=== PATIENT | male | born 1945 | race Two or more races ===

== ENCOUNTER → 2024-08-17 | Outpatient (CLI) | payer MEDICARE, SELFPAY ==
[2024-08-17 12:03] LABS: Basophils # (Auto) 0.1 Thou/mm3 (0.0-0.2); Basophils % (Auto) 1 % (0-2.5); Eosinophils # (Auto) 0.4 Thou/mm3 (0.0-0.5); Eosinophils % (Auto) 7 % (0-10); Hematocrit 36.8 % (41.0-53.0); Hemoglobin 11.6 g/dL (13.5-16.0); Immature Granulocytes % (Auto) 0 % (0-0); Immature Granulocytes Auto 0.01 Thou/mm3 (0.00-0.00); Lymphocytes # (Auto) 0.9 Thou/mm3 (1.0-4.8); Lymphocytes % (Auto) 17 % (10-50); Mean Corpuscular HGB Conc 31.5 g/dl (31.0-37.0); Mean Corpuscular Hemoglobin 29.7 pg (25.0-35.0); Mean Corpuscular Volume 94 fL (80-100); Monocytes # (Auto) 0.5 Thou/mm3 (0.0-0.8); Monocytes % (Auto) 8 % (0-12); Neutrophils # (Auto) 3.7 Thou/mm3 (1.8-7.7); Neutrophils % (Auto) 67 % (37-80); Nucleated Red Blood Cell % 0 /100 WBC (0); Platelet Count 219 Thou/mm3 (140-440); RDW Standard Deviation 45.5 fL (35.1-43.9); Red Blood Count 3.91 Miln/mm3 (4.50-5.90); White Blood Count 5.5 Thou/mm3 (3.8-10.6)
[2024-08-17 12:11] LABS: Glucose Estimated Average 154 mg/dL (80-131)
[2024-08-17 12:16] LABS: Alanine Aminotransferase 15 U/L (10-49); Albumin, Serum 4.1 gm/dL (3.4-4.8); Alkaline Phosphatase 76 U/L (46-116); Anion Gap 6 (7-16); Aspartate Amino Transferase 10 U/L (0-34); BUN/Creatinine Ratio 18 Ratio (12-20); Bilirubin,Direct 0.1 mg/dL (0.0-0.3); Bilirubin,Total 0.4 mg/dL (0.3-1.2); Blood Urea Nitrogen 28 mg/dL (9-23); Calcium 8.8 mg/dL (8.3-10.6); Carbon Dioxide 28.7 mMol/L (20.0-31.0); Cardiac Risk Estimate 4.5 RATIO (4.0-6.7); Chloride 106 mMol/L (98-107); Cholesterol 195 mg/dL (132-200); Creatinine (Component) 1.6 mg/dL (0.6-1.3); Glucose 139 mg/dL (74-106); HDL Cholesterol 43 mg/dL (40-60); LDL Cholesterol,Calculated 127 mg/dL (0-130); Osmolality,Calculated 288 (275-295); Potassium 4.4 mMol/L (3.4-5.1); Sodium 141 mMol/L (136-145); Total Protein 6.9 gm/dL (5.7-8.2); Triglycerides 123 mg/dL (30-150); eGFR 43 See Note
[2024-08-17 12:23] LABS: Creatinine MALB Rnd Ur 74 mg/dL (30-125); Microalbumin Creat Ratio 66 mg/gCrea (<30); Microalbumin, Random Urine 49 mg/L (0-300)
[2024-08-17 12:24] LABS: Iron 45 mcg/dL (65-175); Percent Iron Saturation 12 % (20-55); Total Iron Binding Capacity 351 mcg/dL (250-425); Unsaturated Iron Binding 306 (225-295)
== END | disposition home or self-care (01) ==
LOC: COPL 11:09
PROVIDERS: PCP Family Medicine; Referring Provider Family Medicine; Visit Provider Family Medicine
DX: I10 Essential (primary) hypertension (principal); E11.22 Type 2 diabetes mellitus with diabetic chronic kidney disease; D50.9 Iron deficiency anemia, unspecified
CPT/HCPCS: 36415; 80048; 80061; 80076; 82043; 82570; 83036; 83540; 83550; 85025

== ENCOUNTER 2025-05-28 07:15 | Day surgery (SDC) | payer OTHER, SELFPAY ==
--- NOTE | 2025-05-27 07:00 | EKG_ITS ---
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
[2025-05-27 08:41] VITALS: BMI 32.5
[2025-05-27 09:08] LABS: Collection Type, Urine Clean Catch; Squamous Epithelial Cell,Urine 0 /hpf (0-5)
[2025-05-27 10:26] LABS: Basophils # (Auto) 0.1 Thou/mm3 (0.0-0.2); Basophils % (Auto) 1 % (0-2.5); Eosinophils # (Auto) 0.4 Thou/mm3 (0.0-0.5); Eosinophils % (Auto) 7 % (0-10); Hematocrit 38.8 % (41.0-53.0); Hemoglobin 12.2 g/dL (13.5-16.0); Immature Granulocytes Auto 0.02 Thou/mm3 (0.00-0.00); Lymphocytes # (Auto) 1.1 Thou/mm3 (1.0-4.8); Lymphocytes % (Auto) 20 % (10-50); Mean Corpuscular HGB Conc 31.4 g/dl (31.0-37.0); Mean Corpuscular Hemoglobin 29.8 pg (25.0-35.0); Mean Corpuscular Volume 95 fL (80-100); Monocytes # (Auto) 0.4 Thou/mm3 (0.0-0.8); Monocytes % (Auto) 7 % (0-12); Neutrophils # (Auto) 3.4 Thou/mm3 (1.8-7.7); Neutrophils % (Auto) 65 % (37-80); Nucleated Red Blood Cell # 0.00 Thou/mm3 (0.00-0.00); Nucleated Red Blood Cell % 0 /100 WBC (0); Platelet Count 215 Thou/mm3 (140-440); RDW Standard Deviation 48.8 fL (35.1-43.9); Red Blood Count 4.10 Miln/mm3 (4.50-5.90); White Blood Count 5.3 Thou/mm3 (3.8-10.6)
[2025-05-27 10:28] LABS: Bilirubin,Urine Negative (Negative); Blood,Urine Trace (Negative); Clarity,Urine Clear (Clear/Hazy); Color,Urine Lt-Yellow (Lt Yel-Yel); Glucose, Urine 1+ (Negative); Hyaline Casts,Urine < 1 /hpf (0-1); Ketones,Urine Negative (Negative); Leukocyte Esterase,Urine Negative (Negative); Nitrite,Urine Negative (Negative); PH,Urine 6.5 (5.0-7.0); Protein,Urine Negative (Neg - Trace); RBC,Urine 3 /hpf (0-3); Specific Gravity,Urine 1.016 (1.001-1.035); Urobilinogen,Urine Negative mg/dL (0.0-1.0); WBC,Urine 1 /hpf (0-5)
[2025-05-27 10:47] LABS: Alanine Aminotransferase 11 U/L (10-49); Albumin, Serum 4.5 gm/dL (3.4-4.8); Albumin/Globulin Ratio 1.6 (1.2-2.2); Alkaline Phosphatase 72 U/L (46-116); Anion Gap 8 (7-16); Aspartate Amino Transferase 20 U/L (0-34); BUN/Creatinine Ratio 14 Ratio (12-20); Bilirubin,Total 0.4 mg/dL (0.3-1.2); Blood Urea Nitrogen 23 mg/dL (9-23); Calcium 9.3 mg/dL (8.3-10.6); Calcium (Corrected) 9.3 mg/dL (8.5-10.1); Carbon Dioxide 28.1 mMol/L (20.0-31.0); Chloride 108 mMol/L (98-107); Creatinine (Component) 1.6 mg/dL (0.6-1.3); Estimated Creatinine Clearance 43.5 mL/min (>60); Globulin 2.8 gm/dL (2.3-3.5); Glucose 175 mg/dL (74-106); Osmolality,Calculated 294 (275-295); Potassium 4.6 mMol/L (3.4-5.1); Prostate Specific Antigen 4.50 ng/mL (0-4.00); Sodium 144 mMol/L (136-145); Total Protein 7.3 gm/dL (5.7-8.2); eGFR 43 See Note
--- NOTE | 2025-05-27 11:40 | ESHP_ITS ---
RE: PRAKASH WYMAN : 1945 DATE OF ADMISSION: 05/27/2025 HISTORY OF PRESENT ILLNESS: Patient is scheduled to have circumcision. He is an 80-year-old gentleman. He was referred to me with infection and balanitis of his penis. He has nocturia x1. There is no history of blood or burning in the urine. PAST SURGICAL HISTORY: Pacemaker insertion and eye surgery. SOCIAL HISTORY: He has 3 kids. ALLERGIES: NONE KNOWN. PAST MEDICAL HISTORY: He has history of diabetes mellitus and history of hypertension. MEDICATIONS: He takes metformin and blood pressure medications. PHYSICAL EXAMINATION: HEENT: Normal. NECK: Supple. LUNGS: Clear. HEART: Sounds are normal. ABDOMEN: Soft without any organomegaly. No guarding. No rigidity. EXTREMITIES: Normal. GENITOURINARY: Phallus reveals long foreskin, tight phimosis. Testes are down in the scrotum. IMPRESSION: 1. Phimosis. 2. Diabetes mellitus. 3. Hypertension. PLAN: Circumcision. Planned procedure, risks and complications have been discussed with the patient. Patient has understood them and agreed to proceed. Thank you very much for your kind referral. cc: Rafi Silverman MD DT: 11:04:11 TT: 11:38:00 Ref: [id number] - TID: [id number]
--- NOTE | 2025-05-27 12:47 | SUR.PREOP ---
Confirm with pt's daughter to bring pt at 0730 tomorrow.
[2025-05-28] VITALS (8 sets, daily range): BP systolic 123–148; BP diastolic 63–81; PULSE 60–82; RESP 13–20; TEMP 36.4–36.8; O2SAT 95–98; BMI 32.2
--- NOTE | 2025-05-28 10:37 | SUR.PHASEI ---
1013: Pt received in [facility] via gurney. Report from Beto RAJPUT and Dr. Roy. Pt obtunded. Resp even, unlabored. VS stable. Dressing to penis dry, clean, intact. No c/o pain, discomfort. 1040: Pt resting with no complaints voiced. Resp even, unlabored. VS stable. Dressing remains dry, clean, intact.
--- NOTE | 2025-05-28 11:10 | SUR.PHASEII ---
1057: Pt more awake, alert. Resp even, unlabored. VS stable. Dressing remains dry, clean, intact. Denies pain. 1104: Pt sitting up tolerating po fluids with no difficulty swallowing and no n/v.
--- NOTE | 2025-05-28 12:04 | SUR.PHASEII ---
1124: Pt fully awake, oriented x3. VS stable. Dressing dry, clean, intact. Denies pain. Pt dressed. Assisted to restroom to void. Ambulation steady. 1140: Pt and daughter requested discharge instructions be printed in Uzbek. Both stated understanding of discharge instructions. 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 Pt discharged from [facility] in stable condition.
--- NOTE | 2025-05-28 20:35 | ESOP_ITS ---
RE: PRAKASH WYMAN : 1945 DATE OF OPERATION: 05/28/2025 PREOPERATIVE DIAGNOSES: 1. Tight phimosis. 2. History of diabetes mellitus. POSTOPERATIVE DIAGNOSES: 1. Tight phimosis. 2. History of diabetes mellitus. PROCEDURE PERFORMED: Circumcision. ANESTHESIA: General by Dr. Roy. INDICATION: Patient is an 80-year-old gentleman with tight phimosis. He was referred to tx. He is now scheduled to have circumcision. Planned procedure, risks, and complications have been discussed with the patient. Patient understood them and agreed to proceed. DESCRIPTION OF PROCEDURE: After the patient was brought to the operating table, under adequate general anesthesia and supine position, parts were prepped and draped in the usual fashion. Circumcision was then carried out in a standard fashion by excising the foreskin in a circumferential manner at the level of jones glandis. Complete hemostasis was obtained. Skin was reapproximated back by placing interrupted sutures of 3-0 chromic catgut. Sterile dressing was then applied. Patient had a local anesthetic injected at the base of the penis. Patient was then transferred to the recovery room in a satisfactory condition having tolerated the entire procedure well. Sponge count and needle count at the end of the procedure was found to be correct. Estimated blood loss was approximately 5 mL. DT: 11:02:16 TT: 20:34:00 Ref: [id number] - TID: [id number]
== END 2025-05-28 11:40 | disposition home or self-care (01) ==
PROVIDERS: Anesthesiology; PCP Family Medicine; Referring Provider Surgery; Visit Provider Surgery
PROC: (CPT 54161; principal; 2025-05-28 09:30)
DX: N47.1 Phimosis (principal); N48.1 Balanitis; E11.9 Type 2 diabetes mellitus without complications; I10 Essential (primary) hypertension; Z95.0 Presence of cardiac pacemaker; Z01.810 Encounter for preprocedural cardiovascular examination
CPT/HCPCS: 54161; 36415; 80053; 81001; 84153; 85025; 93005; A4217; A4649; J0690; J1100; J2371; J2704; J2765; J3010; J3490; A9270; J0665